=== PATIENT | male | born 1950 | race Caucasian/White ===

== ENCOUNTER 2023-07-21 08:00 | Outpatient (CLI) | payer OTHER | END 2023-07-21 16:00 | disposition home or self-care (01) | LOC: SLB 08:00 → EDSTATUS 07-26 07:00 → EDSEX 07-26 07:00 | PROVIDERS: ATTEND Orthopaedic Surgery | DX: M16.12 Unilateral primary osteoarthritis, left hip (principal) | CPT/HCPCS: 87081 ==